=== PATIENT | female | born 1940 | race Caucasian/White ===

== ENCOUNTER → 2019-05-10 | Outpatient (REF) | LOC: M LAB LCGH 14:30 | PROVIDERS: ATTEND Physician Assistant | DX: D48.5 Neoplasm of uncertain behavior of skin (principal) ==

== ENCOUNTER 2019-12-18 20:07 | Emergency (ER) | payer MEDICARE ==
[~2019-12-18] VITALS: Ht 147.3 cm; Wt 54.3 kg
[2019-12-18] MEDS ORDERED: LISI-538 PO (20:29)
[2019-12-18] MEDS ORDERED: AMLO2.5T3 PO (20:29)
[2019-12-18] MEDS ORDERED: MAGN250T22 PO (20:29)
[2019-12-18] MEDS ORDERED: COLA100C5 PO (20:29)
[2019-12-18] MEDS ORDERED: CALCCHW19 PO (20:29)
[2019-12-18] MEDS ORDERED: KP V1TAB PO (20:29)
[2019-12-18] MEDS ORDERED: PRAV20TA2 PO (20:29)
[2019-12-18] MEDS ORDERED: ASPI81CH33 PO (20:29)
[2019-12-18] MEDS ORDERED: CLOP75TA2 PO (20:29)
[2019-12-18] MEDS ORDERED: PREG50CA PO (20:29)
[2019-12-18] MEDS ORDERED: CARV6.25 PO (20:29)
[2019-12-18] MEDS ORDERED: MULTCAP PO (20:29)
[2019-12-18] MEDS ORDERED: RABIES VACCINE HUMAN 2.5 INTERNATIONAL UNITS/ML VIAL (90675) IM ONE (21:00)
[2019-12-18] MEDS ORDERED: RABIES IMMUNE GLOBULIN 1500 INTERNATIONAL UNIT/5ML VIAL (90375) IM ONE (21:00)
[2019-12-18] MEDS ORDERED: RABIES IMMUNE GLOBULIN 300 INTERNATIONAL UNITS/1ML VIAL (90375) IM ONE (21:30)
[2019-12-18] MEDS ORDERED: AUGM875T28 PO (22:10)
[2019-12-18 22:12] VITALS: BP 133/86
[2019-12-18] MEDS ORDERED: AUGMENTIN 875 MG TAB PO ONE (22:15)
== END 2019-12-18 22:42 | disposition home or self-care (01) ==
LOC: M ED 20:07
DX: S51.812A Laceration without foreign body of left forearm, initial encounter (principal); S61.411A Laceration without foreign body of right hand, initial encounter; W55.81XA Bitten by other mammals, initial encounter; Y92.019 Unspecified place in single-family (private) house as the place of occurrence of the external cause; Z79.82 Long term (current) use of aspirin; Z79.899 Other long term (current) drug therapy

== ENCOUNTER 2019-12-21 11:02 | Emergency (ER) | payer MEDICARE ==
[~2019-12-21] VITALS: Ht 149.9 cm; Wt 53.3 kg
[~2019-12-21 11:02] MED LIST: AMLO2.5T3 PO; ASPI81CH33 PO; AUGM875T28 PO; CALCCHW19 PO; CARV6.25 PO; CLOP75TA2 PO; COLA100C5 PO; KP V1TAB PO; LISI-538 PO; MAGN250T22 PO; MULTCAP PO; PRAV20TA2 PO; PREG50CA PO
[2019-12-21] MEDS ORDERED: RABIES VACCINE HUMAN 2.5 INTERNATIONAL UNITS/ML VIAL (90675) IM ONE (11:30)
[2019-12-21 11:33] VITALS: BP 160/72
== END 2019-12-21 11:58 | disposition home or self-care (01) ==
LOC: M ED 11:02
DX: Z20.3 Contact with and (suspected) exposure to rabies (principal); Z23 Encounter for immunization; I10 Essential (primary) hypertension; I25.2 Old myocardial infarction; E78.00 Pure hypercholesterolemia, unspecified; Z95.5 Presence of coronary angioplasty implant and graft; K21.9 Gastro-esophageal reflux disease without esophagitis; Z79.899 Other long term (current) drug therapy; Z79.2 Long term (current) use of antibiotics; Z79.02 Long term (current) use of antithrombotics/antiplatelets; Z79.82 Long term (current) use of aspirin

== ENCOUNTER 2019-12-24 12:25 | Emergency (ER) | payer MEDICARE, OTHER ==
[~2019-12-24] VITALS: Ht 149.9 cm; Wt 52.9 kg
[2019-12-24] MEDS ORDERED: RABIES IMMUNE GLOBULIN 300 INTERNATIONAL UNITS/1ML VIAL (90375) IM ONE (13:00)
[2019-12-24] MEDS ORDERED: RABIES IMMUNE GLOBULIN 300 INTERNATIONAL UNITS/1ML VIAL (90375) XX ONE (13:00)
[2019-12-24 14:10] VITALS: BP 135/93
[2019-12-25] MEDS ORDERED: AMOX875T2 (13:27)
== END 2019-12-24 14:17 | disposition home or self-care (01) ==
LOC: M ED 12:25
DX: Z20.3 Contact with and (suspected) exposure to rabies (principal); Z23 Encounter for immunization

== ENCOUNTER 2019-12-25 13:22 | Emergency (ER) | payer MEDICARE, OTHER ==
[~2019-12-25] VITALS: Ht 149.9 cm; Wt 50.9 kg
[2019-12-25 13:22] VITALS: BP 144/75
[2019-12-25] MEDS ORDERED: AMOX875T2 (13:27)
[2019-12-25] MEDS ORDERED: RABIES VACCINE HUMAN 2.5 INTERNATIONAL UNITS/ML VIAL (90675) IM ONE (13:30)
[2019-12-25] MEDS ORDERED: BOOSTRIX/ADACEL VACCINE (DIPHTH/PERTUSS/ACELL/TETANUS) 0.5ML SYR IM ONE (13:45)
== END 2019-12-25 14:02 | disposition home or self-care (01) ==
LOC: M ED 13:22
DX: Z20.3 Contact with and (suspected) exposure to rabies (principal); Z23 Encounter for immunization

== ENCOUNTER 2020-01-01 11:06 | Emergency (ER) | payer MEDICARE, OTHER ==
[~2020-01-01] VITALS: Ht 149.9 cm; Wt 53.0 kg
[2020-01-01 11:06] VITALS: BP 120/68
[~2020-01-01 11:06] MED LIST changes: +AMOX875T2
[2020-01-01] MEDS ORDERED: RABIES VACCINE HUMAN 2.5 INTERNATIONAL UNITS/ML VIAL (90675) IM ONE (12:00)
== END 2020-01-01 12:16 | disposition home or self-care (01) ==
LOC: M ED 11:06
DX: Z20.3 Contact with and (suspected) exposure to rabies (principal); Z23 Encounter for immunization